=== PATIENT | female | born 1980 | race Hispanic/Latino ===

== ENCOUNTER 2023-12-23 21:28 | Emergency (ER) | payer OTHER ==
[~2023-12-23] VITALS: Ht 144.8 cm; Wt 61.2 kg
[2023-12-23 21:59] LABS: BASOPHILS # (AUTO) 0.03 K/uL (0.00-0.20); BASOPHILS % (AUTO) 0.3 % (0.0-5.0); EOSINOPHILS # (AUTO) 0.04 K/uL (0.00-0.70); EOSINOPHILS % (AUTO) 0.4 % (0.0-8.0); HEMATOCRIT 29.3 % (36-48); IMMATURE GRANULOCYTE ABSOLUTE 0.04 K/uL (0-1); LYMPHOCYTES # (AUTO) 1.4 K/uL (1.0-4.8); LYMPHOCYTES % (AUTO) 14.2 % (21.0-51.0); MEAN CORPUSCULAR HEMOGLOBIN 25.1 pg (27.0-33.0); MEAN CORPUSCULAR HGB CONC 31.1 g/dL (32.0-36.0); MEAN CORPUSCULAR VOLUME 80.7 fL (79-99); MONOCYTES # (AUTO) 0.6 K/uL (0.1-1.0); MONOCYTES % (AUTO) 5.6 % (3.0-13.0); NEUTROPHILS # (AUTO) 7.9 K/uL (1.8-7.7); NEUTROPHILS % (AUTO) 79.1 % (40.0-77.0); PLATELET COUNT (AUTO) 251 K/uL (130-400); RED BLOOD CELL COUNT(AUTO) 3.63 MIL/uL (4.00-5.50); RED CELL DISTRIBUTION WIDTH 16.2 % (11.0-15.5); WHITE BLOOD COUNT (AUTO) 9.9 K/uL (4.8-10.8)
[2023-12-23 22:14] LABS: CREATININE 0.9 mg/dL (0.5-1.0); POTASSIUM 3.8 mmol/L (3.5-5.1)
[2023-12-23] MEDS: METOCLOPRAMIDE 10 MG/2 ML VIAL IVP ONE (22:15)
[2023-12-23] MEDS: MORPHINE 2 MG SYG IVP ONE (22:17)
[2023-12-23] MEDS: FAMOTIDINE 20MG VIAL IV ONE (22:17)
[2023-12-23 22:18] LABS: ALBUMIN 3.1 g/dL (3.5-5.0); BILIRUBIN,TOTAL 0.3 mg/dL (0.2-1.0); TOTAL PROTEIN, SERUM 7.7 g/dL (6.0-8.3)
[2023-12-23] MEDS: LACTATED RINGERS IV ONE (22:18)
[2023-12-23 22:34] LABS: RAPID GROUP A STREP negative (NEGATIVE)
[2023-12-23 22:39] LABS: SARS-CoV-2, RNA, NAAT NEGATIVE SARS CoV-2 (NEGATIVE)
[2023-12-23 22:43] LABS: INFLUENZA TYPE A Negative For Type A (NEGATIVE); INFLUENZA TYPE B Negative For Type B (NEGATIVE)
[2023-12-23] MEDS ORDERED: IOHEXOL 350 MG/ML 100ML INFUS..BTL IV ONE (23:02)
[2023-12-23] MEDS: ONDANSETRON 4MG INJ ONE (23:52)
[2023-12-24 02:40] LABS: APPEARANCE,URINE CLEAR (CLEAR); BILIRUBIN,URINE NEGATIVE (NEGATIVE); COLOR,URINE COLORLESS (YELLOW); GLUCOSE, URINE (UA) NEGATIVE (NEGATIVE); KETONES,URINE 40 mg/dL (NEGATIVE); LEUKOCYTE ESTERASE ,URINE NEGATIVE Leu/uL (NEGATIVE); NITRATE,URINE NEGATIVE (NEGATIVE); OCCULT BLOOD,URINE NEGATIVE (NEGATIVE); PH,URINE 5.5 (5.0-8.0); PROTEIN,URINE 30 mg/dL (NEGATIVE); UROBILINOGEN,URINE 0.2 mg/dL (0.2-1.0)
[2023-12-24 02:47] LABS: ADD UA MICROSCOPIC YES
[2023-12-24 03:00] LABS: BACTERIA,URINE None Seen /HPF (None Seen); SQUAMOUS EPITHELIAL CELL,UR Few /HPF (0-2); WBC,URINE 0-1 /HPF (0-1)
[2023-12-24] MEDS ORDERED: METO-296 PO (03:25)
[2023-12-24] MEDS ORDERED: METR-172 PO (03:25)
[2023-12-24 04:10] VITALS: BP 152/68; PULSE 88; RESP 18; O2SAT 97
[2023-12-24] MEDS: METRONIDAZOLE 500MG/100ML BAG IV SCH (04:29)
[2023-12-24] MEDS: METRONIDAZOLE 500MG/100ML BAG 100 ML ONE (04:29)
[2023-12-24] MEDS ORDERED: METRONIDAZOLE 500MG/100ML BAG 100 ML IVPB SCH (06:00)
== END 2023-12-24 04:15 | disposition home or self-care (01) ==
LOC: EDH 21:28
DX: K52.9 Noninfective gastroenteritis and colitis, unspecified (principal); E11.9 Type 2 diabetes mellitus without complications; Z20.822 Contact with and (suspected) exposure to COVID-19
CPT/HCPCS: 99285; 74177; 96374; 96361; 96375 ×2; 87635; 84484; 80053; 84703; 83690; 85025; 87880; 87804 ×2; 81001; 36415; 93005; J7120; J3490 ×2; J2270; J2405; J2765; Q9967